=== PATIENT | female | born 1975 | race African-American/Black ===

== ENCOUNTER 2017-12-06 12:03 | Emergency (ER) | payer OTHER ==
[~2017-12-06] VITALS: Ht 167.6 cm; Wt 95.3 kg
[~2017-12-06 12:03] MED LIST: CLEOCIN HCL150 MG; DOXYCYCLINE 10100 MG PO; HYDROCODONE-AP1 EAC6 PO; NORCO 7.5-3251 EACH PO; PHENERGAN 25 MG25 M1 PO
[2017-12-06 12:49] LABS: URINE BILIRUBIN NEGATIVE (Negative); URINE BLOOD NEGATIVE (Negative); URINE CLARITY CLEAR; URINE COLOR YELLOW; URINE GLUCOSE-RANDOM NEGATIVE (Negative); URINE KETONES NEGATIVE (Negative); URINE NITRITE-REFLEX NEGATIVE (Negative); URINE PROTEIN NEGATIVE (Negative); URINE SPECIFIC GRAVITY 1.025 (1.005-1.030); URINE UROBILINOGEN 0.2 E.U./dl (0.2-1.0)
[2017-12-06 12:56] LABS: URINE LEUKOCYTES-REFLEX 2+ (Negative)
[2017-12-06 13:02] LABS: SQUAMOUS >10 Many /LPF (0-3); URINE WBC-REFLEX 6-15 Few /HPF (0-5)
[2017-12-06 13:03] LABS: CASTS None Seen /LPF (None Seen); CRYSTALS None Seen /LPF (None Seen); URINE RBC 3-10 Few /HPF (0-2)
[2017-12-06] MEDS ORDERED: BACTRIM DS TAB1 EACH PO (13:07)
[2017-12-06 13:32] VITALS: BP 125/80
== END 2017-12-06 13:32 | disposition home or self-care (01) ==
LOC: M.ERS 12:03
PROVIDERS: Physician Assistant
DX: N39.0 Urinary tract infection, site not specified (principal)